=== PATIENT | male | born 1975 | race Native Hawaiian/Other Pacific Islander ===

== ENCOUNTER 2024-10-07 05:59 | Day surgery (SDC) | payer BC, SELFPAY ==
[2024-10-07] VITALS (10 sets, daily range): BP systolic 144–170; BP diastolic 94–105; PULSE 74–97; RESP 14–20; TEMP 36.2–37.2; O2SAT 95–99; BMI 28.0
--- NOTE | 2024-10-07 06:24 | EKG12_ITS ---
Test Reason : PREOP Blood Pressure : */* mmHG Vent. Rate : 70 BPM Atrial Rate : 70 BPM P-R Int : 178 ms QRS Dur : 92 ms QT Int : 396 ms P-R-T Axes : 58 -31 42 degrees QTcB Int : 427 ms Normal sinus rhythm Left axis deviation Abnormal ECG No previous ECGs available Confirmed by JAN MACDONALD, ISABELLA ([id number]), supervising editor news reel JANET AYALA ([id number]) on 10/09/2024 2:07:52 PM Referred By: Lefty Carrion Confirmed By: ISABELLA MONTOYA MD
--- NOTE | 2024-10-07 06:57 | PCM.PRE.AN2 ---
ASA Classification* ASA Classification ASA Classification: 2 Assessment & Plan Anesthesia* Anesthesia Assessment Anesthesia Assessment: Discussed sedation and/or anesthesia options, risks, benefits, and alternatives with patient/parents/legal guardian/POA. Questions invited. The patient/parents/legal guardian/POA seems to understand and agrees to proceed with anesthesia plan. Reviewed the physical assessment, medical history, allergy history and patient home medications list prior to surgery/procedure/anesthetic and documented any changes. Performed airway and anesthesia risk assessments. 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 When Was Last Pacemaker Check QUESTION #4 FULL TEXT: You/Your Family Experience fever (hyperthermia) with Anesthesia Last Oral Intake Last Oral intake: Last Oral Intake NPO since 23:00 10/07/24 06:45 Meds taken in AM with sips of No 10/07/24 06:45 water? Meds patient instructed to take am of surgery PONV PONV - systems integration analyst: PONV - systems integration analyst Female No 10/02/24 11:23 HX of Motion Sickness No 10/02/24 11:23 HX of N/V After Surgery No 10/02/24 11:23 Non-Smoker No 10/02/24 11:23 Duration of Surgery greater Yes 10/02/24 11:23 than 60 minutes Number of Risk Factors 1 10/02/24 11:23 PONV Score Low Risk 10/02/24 11:23 Height & Weight Height & Weight: Anesthesia: Height & Weight Height 5 ft 6 in 10/07/24 06:45 Weight: 79 kg 10/07/24 06:45 Body Mass Index (BMI) 28.0 10/07/24 06:45 Respiratory Assessment Respiratory Assessment - systems integration analyst: Respiratory Tract Infection Hx - systems integration analyst Hx Respiratory Tract Infection No 10/02/24 11:23 STOP Sleep Apnea STOP Sleep Apnea - systems integration analyst: STOP Sleep Apnea - systems integration analyst Hx Hypertension Yes: NOT CONTROLLED, NO MEDS 10/02/24 11:23 Hx Sleep Apnea No 10/02/24 11:23 CPAP BIPAP Do you snore loudly (louder No 10/02/24 11:23 than talking or can be heard Do you often feel tired/ No 10/02/24 11:23 fatigued/ sleepy during daytime? Has anyone observed you stop No 10/02/24 11:23 breathing during sleep? STOP Results Negative 10/02/24 11:23 QUESTION #5 FULL TEXT : Do you snore loudly (louder than talking or can be heard through closed doors)? Tobacco Use History Tobacco Use History - systems integration analyst: Tobacco Use History - systems integration analyst Tobacco Use Smoking Status Current every day smoker 10/02/24 11:23 Hx Tobacco Use Yes 10/02/24 11:23 Years Smoking Packs Smoked per Day Smoking Cessation Date was within the last 15 years Hx Smoking Cessation Date Hx Smoking Cessation Counseling Hematologic Medial History Hematologic Hx - systems integration analyst: Hematologic Medical Hx - ditch worker Hx of Blood Transfusion No 10/02/24 11:23 Hx of Transfusion in last 3 No 10/02/24 11:23 Months Date of Last Transfusion (if within last 3 months) Ever experience any problems No 10/02/24 11:23 with transfusion(s)? Specify any problems Hx of Preganancy in last 3 N/A 10/02/24 11:23 Months Nurse Filling Out Transfusion VCHRISTIN 10/02/24 11:23 & Questions: Date: 10/02/24 10/02/24 11:23 Time: 11:24 10/02/24 11:23 Patient unable to answer at this time (ie. confused, unrespo /Reproduction History /Reproductive History - systems integration analyst: /Reproductive Hx- systems integration analyst Hx Now Gestational Age (in weeks): EDC: Hx Hx Para Hx Section SAB Active Medications Active Medications: Current Medications Generic Name Dose Route Start Last Admin Trade Name Freq PRN Reason Stop Dose Admin Cefazolin Sodium 2 gm/ N/A 20 mls @ 400 mls/hr 10/07/24 07:30 IV 10/07/24 07:32 INTRAOP ONE Sodium Chloride 1,000 mls @ 15 mls/hr 10/07/24 06:25 IV .Q48H ROSSY PFSH Medical History Wears glasses Alcohol use Arthritis Back pain Smoker History of irregular heartbeat HTN (hypertension) Home Medications ?Medication ?Instructions ?Recorded ?Last Taken ?Type cyanocobalamin (vitamin B-12) 1,000 mcg PO QDAY 02/23/24 10/04/24 History 1,000 mcg capsule omega-3 fatty acids 1,000 mg 1,000 mg PO QDAY 02/23/24 10/04/24 History capsule Allergy/AdvReac Type Severity Reaction Status Date / Time No Known Allergies Allergy Verified 10/02/24 11:08 Family History Father Heart disease Surgical History H/O vasectomy Social History Smoking Status: Current every day smoker tobacco type: cigarettes alcohol intake: current Review of Systems (Anesthesia) ROS Narrative System reviewed and no additional complaints, except as documented.
[2024-10-07] MEDS: 0.9% Normal Saline (1000mL) 1,000 ML 15 ML IV ×2 (06:59→09:11)
--- NOTE | 2024-10-07 07:16 | HP.PCM_ITS ---
History and Physical Date of Admission: 10/07/24 Intake Vital Signs 02/22/2415:13 09/27/2513:31 Height 5 ft 6 in 5 ft 6 in Weight: 184 lb 180 lb BMI 29.7 29.0 BP 163/99 H 160/110 H Blood Pressure Location Rt brachial Lt brachial Position Sitting Sitting Respiration 17 18 Pulse 80 69 Pulse Source Monitor Monitor Pulse Oximetry (%) 99 99 Oxygen Delivery Method room air room air Intake Visit Reasons: DISCUSS HERNIA SURGERY Chief Complaint: inguinal hernia Is patient in pain?: Yes Allergies No Known Allergies Allergy (Verified 09/27/24 14:32) Medications ?Medication ?Instructions ?Recorded ?Confirmed ?Type cyanocobalamin (vitamin B-12) 1,000 mcg PO QDAY 02/23/24 09/27/24 Hist ory 1,000 mcg capsule omega-3 fatty acids 1,000 mg 1,000 mg PO QDAY 02/23/24 09/27/24 Histo ry capsule PFSH Medical History HTN (hypertension) Surgical History H/O vasectomy Family History Father Heart disease Social History (Updated 02/23/24 @ 15:13 by Phoebe Arriaga) Smoking Status: Current every day smoker alcohol intake: current HPI HPI HPI: Patient is a 48-year-old male with a right inguinal hernia. He says that it bulges whenever he is working. He says it hurts up in his abdomen as well. He denies nausea or vomiting or fevers or chills. The hernia is on the right and he does not have any complaints of the left ROS General General: No weight change, appetite, fatigue, colon cancer, breast cancer or weakness HEENT HEENT: No difficulty swallowing, eye injury, eye surgery, swollen glands or hoarseness Endo Endocrine: No thyroid disease, diabetes mellitus, thyroid cancer, Hair loss, heat intolerance or cold intolerance Skin Skin: No rash or changing moles Musc Musculoskeletal: No back problems, arthritis, rheumatoid arthritis, gout or joint pain Cardio Cardiovascular: Yes high blood pressure; No murmur, pacemaker, heart disease, atrial fibrillation, heart attack, heart stent, palpitations, shortness of breath with exertion or chest pain Psych Psychiatric: No depression, anxiety or hearing voices Resp Respiratory: No shortness of breath, No sleep apnea, No cough, No COPD, No asthma, No emphysema and No wheezing Gastro Gastrointestinal: Yes abdominal pain, No nausea or vomiting, No diarrhea, No constipation, No blood in stool, No acid reflux, No hemorrhoids, No ulcers, No gallbladder problem and No black,tarry stools Eric Hematologic: No blood thinners, No blood disorders, No bleeding, No anemia and No blood clots Neuro Neurologic: No system reviewed and no additional complaints, except as documented, No as per HPI, No abnormal gait, No abnormal hearing, No abnormal movements, No abnormal speech, No behavioral changes, No burning sensations, No confusion, No convulsions, No disequilibrium, No dizziness, No localized w eakness, No frequent falls, No headache(s), No lack of coordination, No loss of vision, No memory loss, No numbness, No other visual disturbances, No radicular pain, No restless legs, No sensory deficit, No syncope, No tingling, No tremor(s), No weakness and No other Exam Const General: cooperative Orientation: alert and oriented x3 HENNY Head: normal to inspection Neck Neck: normal visual inspection and full ROM Chest Chest palpation & inspection: normal inspection of the chest Resp Effort & Inspection: normal respiratory effort Auscultation: clear to auscultation bilaterally Cardio Rate: regular rate Rhythm: regular rhythm GI Inspection: non-distended Palpation: soft, hernia indirect inguinal on the right and nontender Skin General: no rashes or lesions noted Neuro General: patient alert and patient oriented x3 Extrem General: full ROM Psych Appearance: grossly normal Mental Status: mental status grossly normal Assessment and Plan Assessment and Plan (1) Right inguinal hernia: Status: Acute Plan: The patient has a right inguinal hernia which is reducible. I discussed robotic assisted laparoscopic right inguinal hernia repair with mesh. I discussed the procedure in detail as well as the risks including but not limited to bleeding, infection, injury to the testicle or blood supply to the testicle, injury to bowel or bladder.. Patient understands the risks and is willing to proceed. Lefty Carrion MD Pager: [facility] [address] [place] [address], [address] [place] [address] Office: I have seen and reexamined the patient and reviewed the H&P. There are no clinical changes
[2024-10-07] MEDS: Cefazolin 2 GM in Syringe IV (07:40)
[2024-10-07] MEDS: Bupivacaine Mpf 0.5% 30 ML VIAL (08:24)
--- NOTE | 2024-10-07 08:30 | PCM.OPRPT ---
Operative Report (Standard) Operative Information Date of Procedure: 10/07/24 Pre-Operative Diagnosis: Right inguinal hernia Post-Operative Diagnosis: Right inguinal hernia Surgery/Procedure Performed: Robotic assisted laparoscopic right inguinal hernia repair with mesh admin secretary: Yes Division Operations Specialist: Sony Mcgrath Tasks completed by technical staff assistant: Opening and Closing Type of Anesthesia: General/Regional RN Documented Start/Stop Times: Operation Date: 10/07/24 07:30 Case Time Into Pre-Op 10/07/24 06:15 Out of Pre-Op 10/07/24 07:19 Anesthesia Start 10/07/24 07:25 Into Room 10/07/24 07:25 Procedure Start 10/07/24 07:44 Procedure Start Time: 07:44 Procedure Stop Time: 08:35 Select all DRAINS/GRAFTS/IMPLANTS that apply: None Estimated Blood Loss: 5 Specimen collected: No Description of surgery: Patient was brought back the op room and general anesthesia was induced. The abdomen was prepped and draped in usual sterile fashion. A midline incision was made superior to the umbilicus and the fascia was elevated and a Veress needle was placed into the abdomen. A drop test was performed. Next the abdomen was insufflated to 15 mmHg. The Veress needle was removed and a port was placed. Camera was inserted into the abdomen and it was inspected for injuries during entry and there were none. Patient was placed in Trendelenburg position. He had a right inguinal hernia with nothing on the left. Under direct visualization an 8 mm port was placed in the right and left lateral abdominal sidewalls and the robot was docked. An incision was made in the peritoneum in the right lower quadrant using electrocautery scissors. Dissection was carried inferiorly until the hernia sac was encountered. It was dissected as best as possible but it was very long and extending into the scrotum. I decided to abandon the sac and transected the hernia sac. There was good hemostasis. Next a piece of ProGrip mesh was unfolded over the hernia defect. The peritoneum was then reapproximated over the mesh using a running 3 OV lock suture. The opening in the peritoneum from the hernia sac was also closed using a running 3 OV lock suture. The mesh completely covered by peritoneum at the end of the case. The robot was undocked and the ports were removed and the abdomen was allowed to desufflate. The incisions were injected with local anesthetic and closed with interrupted 4-0 Monocryl sutures. Steri-Strips and bandages were applied. The scrotum was inspected and contained both testicles. patient was brought to PACU in stable condition. Surgical Findings: Indirect right inguinal hernia Complications Complications: No Admit VTE Documentation VTE Mechan Device Prophylaxis: SCD's
--- NOTE | 2024-10-07 08:35 | EX.PCM.DISCH ---
Discharge Instructions Diet Discharge Diet: Light diet - advance as tolerated Activity Discharge Activity: May Not Drive (for 2-3 days or while taking narcotic pain meds.) and May Shower (with the bandage in place 1-2 days after surgery.) Lifting Restrictions: 20 pounds for 4 weeks Additional Activity Instructions:: Climbing stairs is fine, walking is encouraged. Sitting in bed may be uncomfortable. Sitting up using your lateral muscles (sitting up sideways) is usually more comfortable. Do not drive, work heavy equipment or sign legal documents for 24 hours. If your hernia repair was an inguinal repair, you may have scrotal swelling, an ice pack and/or athletic support can provide more comfort. Pain medications may cause nausea, you should typically eat light foods as you take your pain medications. Pain medications may also cause constipation. If you have difficulty with this, discuss with your doctor. Alternate ibuprofen and Tylenol for pain control, oxycodone for breakthrough pain Dressing / Incision Call your doctor if your incision/area has: Continuous Slow Oozing, Sudden Increased Bleeding, Increased Pain/ Swelling, Increased Redness and Foul Smelling Discharge Call your doctor if you observe: Fever of 101 or Higher Suture Line Care: Avoid Pulling/Pushing and Avoid Pinching/Bending Remove Dressing in: 2 days (Remove clear bandages in 2 days, remove Steri-Strips in 7 to 10 days.) Cleanse incision/area with: Soap & Water Follow Up Care Please Follow Up With: Lefty Carrion MD When: Please call to schedule 2 week follow up appointment. [phone] Test Results: Test results from this visit will be discussed in further detail at your follow-up appointment, if applicable. Discharge Plan Admission Attending Provider: Lefty Carrion Primary Care Provider: Care Physician,Eboni Primary Instructions Print Language: Comoran Discharge Orders/Prescriptions Prescriptions: New oxycodone 5 mg Tablet 5 - 10 mg PO Q4H PRN PRN (Reason: Pain Score 4-10) 5 Days Qty: 10 0RF No Action cyanocobalamin (vitamin B-12) 1,000 mcg capsule 1,000 mcg PO QDAY omega-3 fatty acids 1,000 mg capsule 1,000 mg PO QDAY Referrals / Follow Up: Care Physician,No Primary [Primary Care Provider] - Disposition Disposition (needs filled in before D/C Order can be placed): Home, Self Care
--- NOTE | 2024-10-07 08:53 | PCM.POST.ANE ---
Anesthesia: Postop Eval I Current Vital Signs Temperature: 97.6 F Pulse Rate: 88 Blood Pressure: 153/96 Respiratory Rate: 20 Pulse Ox: 95 Oxygen Delivery Method: Room Air Assessment Airway patent: Yes Spontaneous unlabored respirations: Yes Mental status: Awake and Calm nausea: No Vomiting: No Anesthesia Complication: No Fluid Hydration Crystalloid volume administer (ml): 900 Total IV fluid infused: 900 Progress Note Anesthesia document: Postop Eval 1 completed: Yes
--- NOTE | 2024-10-07 09:36 | POSTOPAN2_ITS ---
Anesthesia Postop Eval I Sum Postop Eval Completion status Anesthesia document: Postop Eval 1 completed: Yes Anesthesia Postop Eval I Summary Anesthesia Postop Eval I Summary: Anesthesia Postop Eval I: Assessment Summary Airway patent Yes 10/07/24 08:54 SHELL FREEZING MACHINE [email or web address] Spontaneous unlabored Yes 10/07/24 08:54 SHELL FREEZING MACHINE [email or web address].[email or web address] respirations Mental status Awake,Calm 10/07/24 08:54 SHELL FREEZING MACHINE [email or web address].[email or web address] nausea No 10/07/24 08:54 SHELL FREEZING MACHINE [email or web address].[email or web address] Vomiting No 10/07/24 08:54 SHELL FREEZING MACHINE [email or web address].[email or web address] Anesthesia Postop Eval I: Fluid Summary Crystalloid volume administer 900 10/07/24 08:54 SHELL FREEZING MACHINE [email or web address].[email or web address] (ml) Colloids volume administered ( ml) Blood Product volume administered (ml) Total IV fluid infused 900 10/07/24 08:54 SHELL FREEZING MACHINE [email or web address].[email or web address] Anesthesia Postop Eval I: Summary Notes Anesthesia Complication No 10/07/24 08:54 SHELL FREEZING MACHINE [email or web address].[email or web address] Anesthesia Complication Comment: Post-operative progress note Anesthesia: Postop Eval II Evaluation Mental status: Awake Pain Level: 0 nausea: No Vomiting: No
--- NOTE | 2024-10-07 09:36 | PCM.POSTANE2 ---
Anesthesia Postop Eval I Sum Postop Eval Completion status Anesthesia document: Postop Eval 1 completed: Yes Anesthesia Postop Eval I Summary Anesthesia Postop Eval I Summary: Anesthesia Postop Eval I: Assessment Summary Airway patent Yes 10/07/24 08:54 SOFTWARE CONTROLS [email or web address] Spontaneous unlabored Yes 10/07/24 08:54 SOFTWARE CONTROLS [email or web address] respirations Mental status Awake,Calm 10/07/24 08:54 SOFTWARE CONTROLS [email or web address] nausea No 10/07/24 08:54 SOFTWARE CONTROLS [email or web address] Vomiting No 10/07/24 08:54 SOFTWARE CONTROLS [email or web address] Anesthesia Postop Eval I: Fluid Summary Crystalloid volume administer 900 10/07/24 08:54 SOFTWARE CONTROLS [email or web address] (ml) Colloids volume administered ( ml) Blood Product volume administered (ml) Total IV fluid infused 900 10/07/24 08:54 SOFTWARE CONTROLS [email or web address] Anesthesia Postop Eval I: Summary Notes Anesthesia Complication No 10/07/24 08:54 SOFTWARE CONTROLS [email or web address] Anesthesia Complication Comment: Post-operative progress note Anesthesia: Postop Eval II Evaluation Mental status: Awake Pain Level: 0 nausea: No Vomiting: No
[2024-10-07] MEDS: Acetaminophen 325 MG Tablet 650 MG PO (09:54)
[2024-10-07] MEDS: oxyCODONE 5 MG Tablet PO (09:54)
== END 2024-10-07 10:13 | disposition home or self-care (01) ==
LOC: SDC 06:02 → AC 06:03
PROVIDERS: Referring Provider Surgery; Visit Provider Surgery
PROC: (CPT 49650; principal; 2024-10-07 07:10)
DX: K40.90 Unilateral inguinal hernia, without obstruction or gangrene, not specified as recurrent (principal); I10 Essential (primary) hypertension; F17.210 Nicotine dependence, cigarettes, uncomplicated
CPT/HCPCS: 49650; 00840; 93005; C1781; J2405

== ENCOUNTER → 2024-10-18 | Outpatient (CLI) | payer BC, SELFPAY ==
--- NOTE | 2024-10-18 09:59 | US_ITS ---
PROCEDURE: TESTICULAR WITH ARTERIAL FLOW (USTES), 10/18/2024 REASON FOR EXAM: RIGHT TESTICULAR SWELLING TECHNIQUE: Grayscale and color/spectral doppler imaging of the scrotum and contents. COMPARISON: None FINDINGS: RIGHT testicle: 3.4 x 3.3 x 2.9 cm. Appearance: Homogeneous echotexture. No visualized mass. Right epididymis: Epididymal cyst measures 4 x 4 x 3 mm. Epididymal head measures 9 x 10 x 12 mm. Vascular flow: Normal low resistance arterial and venous waveforms. Hydrocele: None visualized. LEFT testicle: 3.9 x 2.9 x 2.3 cm. Appearance: Homogeneous echotexture. No visualized mass. Right epididymis: Unremarkable. Epididymal head measures 8 x 8 x 12 mm. Vascular flow: Normal low resistance arterial and probably extremely faint venous waveforms. Hydrocele: None visualized. Scrotal wall: Thickening to 6 mm. US/Testicular with Arterial Flow IMPRESSION: 1. No findings to suggest testicular torsion or epididymitis/orchitis. 2. Nonspecific scrotal wall thickening can be seen in the setting of soft tissu e edema or perhaps soft tissue infection. Correlate with exam and recommend clinical follow-up as indicated. 3. Additional description as above. Reading Location: [id number]
== END | disposition home or self-care (01) ==
PROVIDERS: Referring Provider Surgery; Visit Provider Surgery
DX: N50.89 Other specified disorders of the male genital organs (principal); K40.90 Unilateral inguinal hernia, without obstruction or gangrene, not specified as recurrent
CPT/HCPCS: 76870; 93976